=== PATIENT | male | born 1950 | race Caucasian/White ===

== ENCOUNTER 2017-03-15 06:59 | Emergency (ER) | payer BC, MEDICARE ==
[~2017-03-15 06:59] MED LIST: ASA CHILDREN'S81 MG PO; COLACE-DPS100 MG PO; ELIQUIS5 MG PO; HYZAAR-100/251 TAB PO; KEFLEX-DPS500 MG PO; NORCO 5-325 TA1 EACH PO
--- NOTE | 2017-03-15 19:02 | ER ---
ADMIT: 03/15/2017 RM/LOC: ER [facility] MR#: [id number] [address] [id number] ZHOUMICHAEL NAVAS Olivia [address] [place] [address] Emergency Room Report SEX: M AGE: 66 : 1950 DATE: 03/15/2017 The patient is a 66-year-old male complaining of acute onset of right epistaxis this morning. No prior history. The patient has had DVTs in the past. Currently, only on aspirin. Exam is remarkable for nontoxic, afebrile male with large clot right nares. The patient is treated with Afrin spray, lidocaine with adrenaline, silver nitrate, tranexamic acid 1 g and Zofran 8 mg IV push. The patient had a brief vasovagal episode, treated with IV fluids. Instructed in home care for epistaxis follow up Dr. Dia or Dr. Ray as needed. Reinaldo Hernandez MD/ [facility]onides JOB #: [id number] CC: Reinaldo Hernandez MD, Attending Physician Jalil Dia MD, Family Physician Jalil Dia MD
== END 2017-03-15 08:15 | disposition home or self-care (01) ==
LOC: ER 06:59
PROC: 0W3Q7ZZ Control Bleeding in Respiratory Tract, Via Natural or Artificial Opening (ICD-10-PCS; principal; 2017-03-15)
DX: R04.0 Epistaxis (principal); I10 Essential (primary) hypertension; Z85.46 Personal history of malignant neoplasm of prostate; Z86.718 Personal history of other venous thrombosis and embolism; Z79.82 Long term (current) use of aspirin; Z79.899 Other long term (current) drug therapy; Z90.79 Acquired absence of other genital organ(s)